=== PATIENT | female | born 1995 | race Caucasian/White ===

== ENCOUNTER → 2017-11-08 | Outpatient (CLI) | payer OTHER ==
[2017-11-08 14:02] LABS: Specimen Source CERVIX
[2017-11-09 10:07] LABS: Source Cervix
== END | disposition home or self-care (01) ==
LOC: OLS 13:52 → LAB SHORT 13:52
PROVIDERS: Obstetrics & Gynecology Gynecology
DX: Z11.3 Encounter for screening for infections with a predominantly sexual mode of transmission (principal)
CPT/HCPCS: 87491; 87591

== ENCOUNTER → 2018-12-19 | Outpatient (CLI) | payer OTHER ==
[2018-12-21 14:08] LABS: HPV 16 Negative (Negative); HPV 18 Negative (Negative); HPV OTHER HR TYPES Negative (Negative)
[2018-12-22 03:09] LABS: CHLAMYDIA TRACHOMATIS, NAA Negative (Negative); NEISSERIA GONORRHOEAE, NAA Negative (Negative)
== END | disposition home or self-care (01) ==
LOC: LAB SHORT 19:08 → LAB 19:08
PROVIDERS: Obstetrics & Gynecology Gynecology
DX: Z12.4 Encounter for screening for malignant neoplasm of cervix (principal); Z11.3 Encounter for screening for infections with a predominantly sexual mode of transmission
CPT/HCPCS: 87491; 87591; 87624; G0123

== ENCOUNTER → 2020-11-13 | Outpatient (CLI) | payer OTHER ==
[2020-11-15 01:07] LABS: CHLAMYDIA TRACHOMATIS, NAA Negative (Negative)
== END ==
LOC: LAB SHORT 14:27
PROVIDERS: Advanced Practice Midwife
DX: Z11.3 Encounter for screening for infections with a predominantly sexual mode of transmission (principal)
CPT/HCPCS: 87491; 87591

== ENCOUNTER → 2021-02-05 | Outpatient (CLI) | payer OTHER | LOC: LAB SHORT 09:26 → LAB 09:26 | DX: J02.9 Acute pharyngitis, unspecified (principal) | CPT/HCPCS: 87081 ==

== ENCOUNTER → 2023-06-06 | Outpatient (CLI) | payer OTHER ==
[2023-06-09 01:09] LABS: CHLAMYDIA TRACHOMATIS, NAA Negative (Negative)
== END | disposition home or self-care (01) ==
LOC: LAB 12:24 → LAB SHORT 12:24
PROVIDERS: Advanced Practice Midwife
DX: Z01.419 Encounter for gynecological examination (general) (routine) without abnormal findings (principal); Z11.3 Encounter for screening for infections with a predominantly sexual mode of transmission
CPT/HCPCS: 87491; 87591; G0145

== ENCOUNTER 2023-07-02 20:58 | Emergency (ER) | payer OTHER ==
[~2023-07-02] VITALS: Ht 172.7 cm; Wt 66.2 kg
[2023-07-02 21:03] VITALS: BP 129/74
== END 2023-07-02 23:56 | disposition home or self-care (01) ==
LOC: ER 20:58
DX: O03.9 Complete or unspecified spontaneous abortion without complication (principal)
CPT/HCPCS: 76830; 76856; 99284-25

== ENCOUNTER → 2023-07-02 | Outpatient (CLI) | payer OTHER | LOC: LAB 12:03 → LAB SHORT 12:03 | DX: N93.9 Abnormal uterine and vaginal bleeding, unspecified (principal) | CPT/HCPCS: 84702; 86900; 86901 ==

== ENCOUNTER → 2024-07-19 | Outpatient (CLI) | payer OTHER | LOC: LAB 09:03 → LAB SHORT 09:03 | DX: N39.0 Urinary tract infection, site not specified (principal) | CPT/HCPCS: 87077; 87086; 87186 ==

== ENCOUNTER → 2024-07-31 | Outpatient (CLI) | payer OTHER ==
[2024-08-01 14:27] LABS: Stool Occult Bld Immuno 1 Positive (NEGATIVE)
== END ==
LOC: LAB SHORT 10:30 → LAB 10:30
DX: K92.1 Melena (principal); Z86.2 Personal history of diseases of the blood and blood-forming organs and certain disorders involving the immune mechanism
CPT/HCPCS: 82274

== ENCOUNTER → 2024-10-22 | Outpatient (CLI) | payer OTHER | LOC: LAB 10:02 → LAB SHORT 10:02 | DX: N39.0 Urinary tract infection, site not specified (principal) | CPT/HCPCS: 87077; 87086; 87186 ==

== ENCOUNTER → 2024-11-09 | Outpatient (CLI) | payer OTHER ==
[2024-11-14 16:32] LABS: CALPROTECTIN,FECAL 399 ug/g (<=49)
== END ==
LOC: LAB 15:15 → LAB SHORT 15:15
PROVIDERS: Physician Assistant Medical
DX: R10.32 Left lower quadrant pain (principal); K92.1 Melena
CPT/HCPCS: 83993

== ENCOUNTER 2024-11-12 12:24 | Day surgery (SDC) | payer OTHER ==
[~2024-11-12] VITALS: Ht 172.7 cm; Wt 68.6 kg
[~2024-11-12 12:24] MED LIST: Lactated Ringer's 1,000 ML IV ONE; propofoL 50 ML IV ONE
[2024-11-12] MEDS ORDERED: Lactated Ringer's 1,000 ML IV ONE (13:40)
[2024-11-12 15:13] VITALS: BP 107/78
== END 2024-11-12 15:12 | disposition home or self-care (01) ==
LOC: ORSCSDS 12:24
PROVIDERS: Specialist
PROC: 0DBP8ZX Excision of Rectum, Via Natural or Artificial Opening Endoscopic, Diagnostic (ICD-10-PCS; principal; 2024-11-12 13:45)
PROC: 0DBN8ZX Excision of Sigmoid Colon, Via Natural or Artificial Opening Endoscopic, Diagnostic (ICD-10-PCS; principal; 2024-11-12 13:45)
DX: K92.1 Melena (principal); R10.31 Right lower quadrant pain; K52.9 Noninfective gastroenteritis and colitis, unspecified; K62.89 Other specified diseases of anus and rectum
CPT/HCPCS: 88305; J2704; J7120

== ENCOUNTER → 2024-12-24 | Outpatient (CLI) | payer OTHER ==
[2024-12-24 10:26] LABS: Source, Urine Clean Catch
[2024-12-24 13:13] LABS: Appearance, Urine Hazy (Clear); Bilirubin, Urine Neg (Neg); Blood, Urine 5+ (Neg); Glucose Qualitative, Urine Neg (Neg); Ketones, Urine Neg (Neg); Leukocyte Esterase, Urine 2+ (Neg); Nitrite, Urine Neg (Neg); Protein, Urine 2+ (Neg); Specific Gravity, Urine 1.005 (1.003-1.022); Urobilinogen, Urine NORM (Normal); pH, Urine 6.5 (5.0-8.0)
[2024-12-24 13:39] LABS: Color, Urine Pale Yellow (P-Yellow)
[2024-12-24 13:40] LABS: Bacteria Mod /hpf; Squamous Epithelial Cells Rare /hpf (Few); White Blood Cells, Urine 25-50 /hpf (0-5)
== END | disposition home or self-care (01) ==
LOC: LAB 10:21 → LAB SHORT 10:21
PROVIDERS: Advanced Practice Midwife
DX: R35.0 Frequency of micturition (principal)
CPT/HCPCS: 81001; 87086